=== PATIENT | female | born 1955 | race Caucasian/White ===

== ENCOUNTER 2022-01-24 05:09 | Observation (INO) ==
--- NOTE | 2021-12-17 13:07 | PAT Medication Instructions ---
Medication Instructions Date of Service December 17, 2021 Home Medications alendronate 70 mg tablet 70 mg PO Q7D aspirin 81 mg tablet 81 mg PO Q3D calcium carbonate 600 mg-vitamin D3 5 mcg (200 unit) tablet 1 tab PO QAM docusate sodium 100 mg capsule (Stool Softener) 100 mg PO QAM PRN glucosamine-chondroitin 1 tab PO QAM ibuprofen 200 mg capsule 200 mg PO Q6H PRN levothyroxine 175 mcg tablet 175 mcg PO QAM polyvinyl alcohol 1.4 % eye drops 1 drp ophthalmic (eye) BID PRN lubrication for plastic eye prosthesis turmeric root extract 150 mg-stoney root extract 25 mg chewable tablet 1 tab PO QAM Continue as directed alendronate 70 mg tablet 70 mg PO Q7D (do NOT take day of surgery) aspirin 81 mg tablet 81 mg PO Q3D (unless directed otherwise by surgeon) ASK your surgeon for instructions ibuprofen 200 mg capsule 200 mg PO Q6H PRN STOP taking 2 weeks before surgery glucosamine-chondroitin 1 tab PO QAM turmeric root extract 150 mg-stoney root extract 25 mg chewable tablet 1 tab PO QAM DO NOT take the morning of surgery calcium carbonate 600 mg-vitamin D3 5 mcg (200 unit) tablet 1 tab PO QAM docusate sodium 100 mg capsule (Stool Softener) 100 mg PO QAM PRN Take morning of surgery With a small sip of water, OTHERWISE NOTHING TO EAT OR DRINK AFTER MIDNIGHT: levothyroxine 175 mcg tablet 175 mcg PO QAM polyvinyl alcohol 1.4 % eye drops 1 drp ophthalmic (eye) BID PRN lubrication for plastic eye prosthesis(if needed) Take evening before surgery polyvinyl alcohol 1.4 % eye drops 1 drp ophthalmic (eye) BID PRN lubrication for plastic eye prosthesis(if needed) Other Notes If you have any questions please call us at [phone] or [phone] or [phone] or [phone]
--- NOTE | 2021-12-26 10:21 | Anesthesiology Consultation ---
Date of Service December 26, 2021 Assessment & Plan (1) Encounter for pre-operative examination: - optimization note completed requesting PCP consideration for pre-op echocardiogram. - COVID screening: Per assessment on 12/26/2021: Travel screen negative, no known COVID-19 positive contacts or current COVID-19 related symptoms in past 2 weeks. Pt vaccinated. Surgeon arranging preop COVID testing, scheduled 01/22/2022. Awaiting results. Chart Review Chart Review: Pending: Refer to Additional Notes / Consult section and Patient seen in Pre Admission Testing Teaching & Discussion Pre-Anesthesia Teaching/Discussion Notes: Instructed NPO after midnight before surgery, except medications with 15 cc of water. Medication instructions provided according to the PAT guidelines. History Surgery Operation Date: 01/24/22 11:20 Proposed Procedures p Right Total Knee Arthroplasty - See Machado, Height/Weight Height: 5 ft 7 in Weight: 124.8 kg Allergies Allergy/AdvReac Type Severity Reaction Status Date / Time adhesive tape Allergy Rash Verified 12/26/21 10:44 codeine Allergy GI upset Verified 12/26/21 10:44 Sulfa (Sulfonamide Allergy Rash Verified 12/26/21 10:44 Antibiotics) Medications Home Medications Medication Instructions Recorded Confirmed Last Taken alendronate 70 mg tablet 70 mg PO Q7D 12/16/21 12/16/21 Unknown aspirin 81 mg tablet 81 mg PO Q3D 12/16/21 12/16/21 Unknown calcium carbonate 600 mg-vitamin 1 tab PO QAM 12/16/21 12/16/21 Unknown D3 5 mcg (200 unit) tablet docusate sodium 100 mg capsule 100 mg PO QAM PRN Constipation 12/16/21 12/16/21 Unknown (Stool Softener) glucosamine-chondroitin 1 tab PO QAM 12/16/21 12/16/21 Unknown ibuprofen 200 mg capsule 200 mg PO Q6H PRN Pain 12/16/21 12/16/21 Unknown levothyroxine 175 mcg tablet 175 mcg PO QAM 12/16/21 12/16/21 Unknown polyvinyl alcohol 1.4 % eye drops 1 drp ophthalmic (eye) BID PRN 12/16/21 12/16/21 Unknown lubrication for plastic eye prosthesis turmeric root extract 150 1 tab PO QAM 12/16/21 12/16/21 Unknown mg-stoney root extract 25 mg chewable tablet erythromycin 12/26/21 Unknown solifenacin 12/26/21 Unknown Past Medical History Medical History History of eye prosthesis Right Hx of cataract Right Hx of thyroid cancer Migraine Hx Patient denies h/o stroke, seizures, heart attack, heart failure, DM, HTN, blood clots or blood transfusions. Exercise / Class Metabolic Activity II 4-5 Yardwork/Stairs/Walk up hill (denies CP or SOB with 15 steps, ambulates with cane) Past Surgical History Surgical History History of cardiac cath 08/2016 ([facility]) > no stents "Normal coronary arteriography" Hx of cataract extraction Right Hx of colonoscopy Hx of enucleation of right eyeball Hx of eye surgery Right eye, multiple surgeries Hx of thyroidectomy Hx of tubal ligation Past Anesthesia History No Hx of Anesthesia Complications and No Family Hx of Anesthesia Complications History of PONV No Hx of PONV and No Hx of Motion Sickness Social History Smoking Status: Never smoker Do You Dip or Chew Tobacco: No Hx Alcohol Use: Yes Alcohol type: wine alcohol intake frequency: holidays/special occasions only Hx Substance Use: No substance use type: does not use Review of Systems Infrequent reflux if eats late at night. Patient denies chest pain, shortness of breath, dyspnea on exertion, snoring, witnessed apneas, fever, chills, cough, wheezing, or palpitations. Physical Exam Vital Signs Vitals BP 140/75 P 85 TEMP 99 SP02 95% on RA RESP 17 Physical Full cervical extension range of motion without pain TMD 3.5 finger breadths Mallampati Score 3 Dentition: intact, denies chipped or loose teeth, caps/crowns, implants or bridges Lungs: normal respiratory effort. Clear throughout to auscultation, no adventitious breath sounds Cardiac: regular rate and rhythm, 2/6 systolic murmur noted Carotid arteries: negative bruit bilat Lab Results Anesthesia Preop Results Results Anesthesia Widget: WBC 5.76 K/ul (4.8-10.8) 12/26/21 Hgb 14.1 g/dl (12.0-16.0) 12/26/21 Hct 42.2 % (34.1-44.9) 12/26/21 Plt 243 K/uL (130-400) 12/26/21 Na 141 mmol/L (136-145) 12/26/21 K 4.2 mmol/L (3.5-5.1) 12/26/21 Cl 109 mmol/L (98-107) H 12/26/21 CO2 27 mmol/L (21-32) 12/26/21 BUN 15 mg/dl (6-23) 12/26/21 Creat 0.70 mg/dl (0.6-1.2) 12/26/21 Glucose Level 100 mg/dl (70-99(Fasting)) H 12/26/21 PT 10.9 Seconds (9.0-12.0) 12/26/21 PTT 26.1 Seconds (21.0-31.0) 12/26/21 INR 1.0 (0.9-1.1) 12/26/21 Blood Type O Positive 12/26/21 Antibody Screen NEGATIVE 12/26/21 Testing Electrocardiogram Date: 12/26/21 NSR, rate [address] abnormality anterolateral leads Chest X-Ray Date: 12/26/21 No acute cardiopulmonary findings. Cardiac Catheterization Date: 09/26/16 Left main: normal LAD: normal Cx: normal RCA: normal Conclusion: Normal coronary arteriography
--- NOTE | 2022-01-23 09:24 | History & Physical Report ---
Date of Service January 23, 2022 Assessment & Plan (1) Osteoarthritis of right knee: We will proceed with a right total knee arthroplasty. Postoperatively she will be started on aspirin for DVT prophylaxis and placed in our outpatient joint protocol. She plans to use Fullscreen upon discharge. History of Present Illness Chief Complaint: Advanced osteoarthritis right knee. Primary Care Provider: NO PCP Mikayla is a 66-year-old female who has been having a long history of increasing right knee pain. She had arthroscopic surgery done in 2000. She had a medial and lateral meniscectomy done. Over the past couple of years, her knee pain has gotten worse. Mostly lateral compartment and patellofemoral pain. She has a difficult time going up and down stairs, getting up from a seated position. The biggest complaint is she gets a lot of posterior knee pain and some walking in tension. X-rays and clinical examination have been diagnostic for advanced osteoarthritis of the right knee. After failing conservative treatment, she elected to proceed with a right total knee arthroplasty. Allergies Allergy/AdvReac Type Severity Reaction Status Date / Time adhesive tape Allergy Rash Verified 12/26/21 10:44 codeine Allergy GI upset Verified 12/26/21 10:44 Sulfa (Sulfonamide Allergy Rash Verified 12/26/21 10:44 Antibiotics) Home Medications Medication Instructions Recorded Confirmed Type alendronate 70 mg tablet 70 mg PO Q7D 12/16/21 12/16/21 History aspirin 81 mg tablet 81 mg PO Q3D 12/16/21 12/16/21 History calcium carbonate 600 mg-vitamin 1 tab PO QAM 12/16/21 12/16/21 History D3 5 mcg (200 unit) tablet docusate sodium 100 mg capsule 100 mg PO QAM PRN Constipation 12/16/21 12/16/21 History (Stool Softener) glucosamine-chondroitin 1 tab PO QAM 12/16/21 12/16/21 History ibuprofen 200 mg capsule 200 mg PO Q6H PRN Pain 12/16/21 12/16/21 History levothyroxine 175 mcg tablet 175 mcg PO QAM 12/16/21 12/16/21 History polyvinyl alcohol 1.4 % eye drops 1 drp ophthalmic (eye) BID PRN 12/16/21 12/16/21 History lubrication for plastic eye prosthesis turmeric root extract 150 1 tab PO QAM 12/16/21 12/16/21 History mg-stoney root extract 25 mg chewable tablet erythromycin 12/26/21 History solifenacin 12/26/21 History Past Med/Surg History Medical History History of eye prosthesis Right Hx of cataract Right Hx of thyroid cancer Migraine Hx Tricuspid regurgitation mild Surgical History History of cardiac cath 08/2016 ([facility]) > no stents "Normal coronary arteriography" Hx of cataract extraction Right Hx of colonoscopy Hx of enucleation of right eyeball Hx of eye surgery Right eye, multiple surgeries Hx of thyroidectomy Hx of tubal ligation Social History Smoking Status: Never smoker Second Hand Exposure: No; Hx Alcohol Use: Yes Alcohol type: wine Hx Substance Use: No Preferred Language: [place] Communication Ability: Effective Well Head Pumper Required: No Beliefs That Will Affect Care: None Current Living Situation: Spouse Feels Safe at Home: Yes Assistive Devices: Cane, Glasses, Prosthesis and Walker Review of Systems All systems reviewed & are unremarkable except as noted in HPI & below. Physical Exam On physical examination of the right knee, she has range of motion of 0 to 110 degrees. She has no instability. She has tenderness palpation of the distal femoral condyles and over the joint lines.. Constitutional WD/WN, vitals as above Eyes PERRL, conjunctivae normal, anicteric sclerae ENMT external ear and nose normal, oropharynx normal Neck trachea midline, no thyromegaly Respiratory normal respiratory effort, lungs clear to auscultation Cardiovascular RRR, no murmur, no edema Gastrointestinal (Abdomen) normal bowel sounds, soft, nontender, no hepatosplenomegaly Skin no rashes, warm and dry Psychiatric A+Ox3, euthymic affect Results & Data Results & Data Laboratory Results . Diagnostic Findings X-rays of the right knee show advanced osteoarthritis with joint space narrowing, osteophyte formation, and [id number] articulation.. PG Care Time/CCT Total # of Minutes Spent Total Time Spent with Patient: Total time spent is greater than 50% in coordination of care (as documented) at patient's floor/unit and/or counseling patient: Coding Level of Care Code None Diagnoses Osteoarthritis of right knee M17.11
[2022-01-24] MEDS ORDERED: TRANEXAMIC ACID 1,000 MG **IV Pre-op IV SCH (06:00)
[2022-01-24] MEDS ORDERED: dexAMETHasone 4 MG TAB PO SCH (06:00)
[2022-01-24] MEDS ORDERED: FAMOTIDINE 20 MG TAB PO SCH (06:00)
[2022-01-24] MEDS ORDERED: GABAPENTIN 300 MG CAP PO SCH (06:00)
[2022-01-24] MEDS ORDERED: ACETAMINOPHEN 500 MG TAB PO SCH (06:00)
[2022-01-24] MEDS ORDERED: LR 500ML BOLUS, THEN 15ML/HR IV SCH (06:00)
[2022-01-24] MEDS ORDERED: Ketorolac (*for OR use only*) 30 MG, dexAMETHasone 4 MG, KETAMINE HCL (**OR use only) 1... INFIL SCH (06:00)
[2022-01-24] MEDS ORDERED: LR 60ML/HR IV SCH (06:00)
[2022-01-24] MEDS ORDERED: TRANEXAMIC ACID 1,000 MG **IV Intra-op IV SCH (06:00)
[2022-01-24] MEDS ORDERED: MEPIVACAINE HCL 1.5% 30 ML VIAL ONE (06:25)
[2022-01-24] MEDS ORDERED: ROPIVACAINE 0.5% 5 MG/ML 30 ML VIAL ONE (06:25)
[2022-01-24] MEDS ORDERED: ONDANSETRON INJ 2 MG/ML 2 ML VIAL IV PRN (06:39)
[2022-01-24] MEDS ORDERED: ePHEDrine sulfate 50 MG/ML AMP IV PRN (06:39)
[2022-01-24] MEDS ORDERED: fentaNYL citrate 100 MCG/2 ML VIAL IV PRN (06:39)
[2022-01-24] MEDS ORDERED: MIDAZOLAM HCL 1 MG/ML 2ML VIAL ONE ×2 (06:39→09:53)
[2022-01-24] MEDS ORDERED: ORTHO JOINT ANESTHETIC ONE (06:39)
[2022-01-24] MEDS ORDERED: ATROPINE SULFATE 0.1 MG/ML 10ML SYR IV PRN (06:39)
[2022-01-24] MEDS ORDERED: KETOROLAC 30 MG/ML VIAL IV PRN (06:39)
[2022-01-24] MEDS ORDERED: KETAMINE 50 MG/5 ML SYRINGE ONE (06:48)
--- NOTE | 2022-01-24 06:53 | History & Physical Bridge Note ---
Date of Service January 24, 2022 History & Physical Bridge Note I have examined the patient, reviewed the History & Physical and in the interval since the performance of the History & Physical I have noted the following changes of clinical significance: no changes noted
[2022-01-24] MEDS ORDERED: PROPOFOL IV EMULSION 10 MG/ML 20 ML VIAL IV ONE ×3 (07:20→07:58)
[2022-01-24] MEDS ORDERED: ONDANSETRON INJ 2 MG/ML 2 ML VIAL ONE (07:20)
--- NOTE | 2022-01-24 08:18 | Operative Report ---
PG Post Operative Report Pre & Post Diagnosis Operation Date: 01/24/22 07:00 Pre-Op Diagnosis: Right Knee Osteoarthritis Post-Op Diagnosis: Right Knee Osteoarthritis I identified the patient and participated in the time-out.: Yes Procedure Operation Date: 01/24/22 07:00 Actual Procedures p Right Total Knee Arthroplasty(Right) - See Machado DO Surgeon See Machado DO Ui Ux Engineer See Byrd PA-C Estimated Blood Loss 20 Findings Consistent with Post-Op Diagnosis Specimens Right femoral and tibial bone Description of Procedure Implants used: I used a [employer] Persona total knee arthroplasty system with a size 11 narrow PS femur, F tibia with a 30 mm stem extension, 31 oval patella, and a size 10 CPS polyethylene bearing. All components were cemented in place with Biomet cement. Mikayla arrived [facility] for the above procedure. He was seen in the preoperative holding area and the operative extremity was identified and signed. He was given a preoperative antibiotic, TXA, a spinal anesthetic and an adductor nerve block. He was taken back to the operating room and laid on the table in supine position. He was given basic sedation. The operative knee was then prepped and draped in sterile fashion. A timeout was done, and the patient and the operative extremity was properly identified. A midline incision was made directly over the patella. Dissection was taken down to the extensor mechanism. A subvastus arthrotomy was used. The medial retinaculum was released and the fat pad was mostly excised. The knee was flexed and the ACL, PCL, and meniscus were removed. A drill was sent down the center of the femoral canal followed by an intramedullary antonio. Off that antonio a distal femoral cutting block was placed. 9 mm was resected off the distal femur at 5 of valgus. A posterior referencing AP sizing guide was then placed on the distal femur. The femur measured to be a size 11. 2 drill holes were placed in 3 of external rotation. A 4-in-1 cutting block was then impacted into place. Anterior, posterior, and chamfer cuts were then made. The proximal tibia was then exposed. An external tibial alignment guide was placed. A tibial cut guide was then anchored in place and the proximal tibia was then resected. The posterior aspect of the knee was then opened up and any additional meniscus fragments and osteophytes were removed. The tibia measured to be a size F. The tibial plate was then placed in the appropriate rotation and the tibia was drilled and punched. Trial components were then placed. I used a size 10 CPS polyethylene insert. The knee was brought through a full range of motion and felt to be stable. The peg holes for the femoral component were then drilled. The patella was then everted and 9 mm was resected off the posterior aspect of the patella. The patella measured to be a size 31 oval. 3 peg holes were then drilled. A trial patella was placed. The knee was once again brought through a full range of motion and felt to be stable. Trial components were then removed. The surrounding soft tissues were injected with 100 cc of an orthopedic pain control cocktail. All components were then cemented into place with Biomet cement. The final polyethylene insert was then snapped into place. Once cement was dry the tourniquet was deflated. Hemostasis was obtained. A dilute betadyne lavage was then done for 3 minutes. The joint was then irrigated with normal saline solution. The subvastus arthrotomy was then closed with #1 Vicryl suture. The skin was closed with 2-0 Vicryl, 3-0V lock suture, and dylan. A soft compressive dressing was placed. He was then transferred to a hospital bed and taken to the postanesthesia care unit in stable condition. He tolerated the procedure well. See Byrd PA-C, was present for the entire procedure. He was critical for patient positioning, prepping, draping, retraction exposure, wound closure and application of sterile dressing. I attest to the content of the Intraoperative Record and any orders documented therein. Any exceptions are noted below.
[2022-01-24] MEDS ORDERED: LIDOCAINE 2% MPF LOCAL 5 ML VIAL INFIL ONE (08:44)
--- NOTE | 2022-01-24 09:28 | XRay Report ---
XR knee RT 1 or 2V routine HISTORY: 66 years-old Female Surgical Post Op right knee total joint arthroplasty COMPARISON: Knee radiographs 11/20/2021 TECHNIQUE: 2 views the right knee FINDINGS: Total joint arthroplasty with patellar resurfacing. Anterior midline skin dylan are present along w ith expected postoperative soft tissue swelling with deep tissue air. No acute fracture, malalignment or unexpected opaque foreign body. IMPRESSION: Total joint arthroplasty with expected postoperative changes. ACT 112: Negative or not required by law. The above report was generated using voice recognition software. It may contain grammatical, syntax o r spelling errors. Electronically signed by: Geoff North M.D. 01/24/2022 9:26 AM
--- NOTE | 2022-01-24 09:35 | Anesthesiology Progress Note ---
Date of Service January 24, 2022 Anesthesia Post Procedure Vital Signs Vital Signs: Temp Pulse Pulse Resp BP Pulse Ox O2 Del Method 01/24/22 09:20 36.2 C L 77 21 150/88 H 93 Room Air 01/24/22 09:10 84 16 152/84 H 95 Room Air 01/24/22 09:00 82 21 156/77 H 95 Room Air 01/24/22 08:50 86 19 142/77 H 96 Room Air 01/24/22 08:41 36.5 C 90 18 137/75 94 Room Air 01/24/22 05:48 37 C 84 20 199/103 H 95 Room Air Transfer of Care Handoff Completed per policy Notes Mental Status: alert / awake / arousable Patient Amnestic to Procedure: Yes Nausea / Vomiting: adequately controlled Pain: adequately controlled Airway Patency, RR, SpO2: stable & adequate BP & HR: stable & adequate Hydration State: stable & adequate Neuraxial Anesthesia: was administered and sensory block is resolving Anesthetic Complications: no major complications apparent
[2022-01-24] MEDS: oxyCODONE/ACETAMINOPHEN 5mg/325mg TAB PO PRN ×2 (10:14→16:41)
[2022-01-24] MEDS ORDERED: NALOXONE HCL 0.4 MG/1 ML VIAL/CARP IV PRN (17:51)
[2022-01-24] MEDS ORDERED: HYDROmorphone INJ 0.5 MG/0.5 ML SYR IV PRN (17:51)
[2022-01-24] MEDS ORDERED: bisacodyL 10 MG SUPP PR PRN (17:51)
[2022-01-24] MEDS ORDERED: METOCLOPRAMIDE HCL INJ 5 MG/ML 2 ML VIAL IV PRN (17:51)
[2022-01-24] MEDS ORDERED: oxyCODONE HCL IR 5 MG TAB (IMMEDIATE RELEASE) PO PRN (17:51)
[2022-01-24] MEDS ORDERED: MAGNESIUM HYDROXIDE SUSP 30 ML UDC PO PRN (17:51)
[2022-01-24] MEDS: SODIUM CHLORIDE 0.9% 1000ML 1,000 ML IV SCH (18:24)
[2022-01-24] MEDS: KETOROLAC 30 MG/ML VIAL IV SCH ×2 (18:25→23:06)
[2022-01-24] MEDS: ASPIRIN 81 MG ECTAB PO SCH (19:58)
[2022-01-24] MEDS: DOCUSATE SODIUM 100 MG CAP PO SCH (19:59)
[2022-01-24] MEDS ORDERED: SENNA 8.6 MG TAB PO SCH (21:00)
[2022-01-24] MEDS: ceFAZolin 2000MG 2,000 MG/15 ML SYR IV SCH (22:14)
[2022-01-25] MEDS: SODIUM CHLORIDE 0.9% 1000ML 1,000 ML IV SCH (04:26)
[2022-01-25] MEDS: KETOROLAC 30 MG/ML VIAL IV SCH ×2 (05:29→11:50)
[2022-01-25] MEDS: ceFAZolin 2000MG 2,000 MG/15 ML SYR IV SCH (05:29)
[2022-01-25] MEDS: ASPIRIN 81 MG ECTAB PO SCH (07:53)
[2022-01-25] MEDS: DOCUSATE SODIUM 100 MG CAP PO SCH (07:54)
[2022-01-25] MEDS ORDERED: dexAMETHasone 4 MG TAB PO SCH (08:00)
--- NOTE | 2022-01-25 08:16 | Orthopedic Progress Note ---
Date of Service January 25, 2022 Assessment & Plan (1) Status post right knee replacement: Overall she is doing very well. She is having too much pain in the knee. She has more strength today. She will be seen by physical therapy today for ambulation and range of motion exercises. She can be discharged home later today. She is on aspirin for DVT prophylaxis. She will follow-up with orthopedics in 2 weeks. Kaushik Degroot was seen and examined at bedside this morning. Overall she is doing fairly well. She had trouble doing stairs yesterday with therapy so she was kept overnight. She feels she has more strength in her leg today. She has no new complaints.. Review of Systems All systems reviewed & are unremarkable except as noted in HPI & below. Physical Exam On physical examination of the right knee, the dressing is clean and dry. Her leg is out full extension. She has active dorsiflexion plantarflexion of her right ankle.. Results & Data Results & Data Laboratory Results . Diagnostic Findings Postoperative x-rays of the right knee show the prosthesis to be in anatomic alignment without any evidence of fracture, desiccation, or loosening. PG Care Time/CCT Total # of Minutes Spent Total Time Spent with Patient: Total time spent is greater than 50% in coordination of care (as documented) at patient's floor/unit and/or counseling patient: Coding Level of Care Code 19726 Post Operative Follow-Up Diagnoses Status post right knee replacement Z96.651
--- NOTE | 2022-01-25 08:17 | Discharge Summary ---
Date of Service January 25, 2022 Admission HPI (Per Admitting) Mikayla is a 66-year-old female who has been having a long history of increasing right knee pain. She had arthroscopic surgery done in 2000. She had a medial and lateral meniscectomy done. Over the past couple of years, her knee pain has gotten worse. Mostly lateral compartment and patellofemoral pain. She has a difficult time going up and down stairs, getting up from a seated position. The biggest complaint is she gets a lot of posterior knee pain and some walking in tension. X-rays and clinical examination have been diagnostic for advanced osteoarthritis of the right knee. After failing conservative treatment, she elected to proceed with a right total knee arthroplasty. Admission Exam (Per Admitting) On physical examination of the right knee, she has range of motion of 0 to 110 degrees. She has no instability. She has tenderness palpation of the distal femoral condyles and over the joint lines.. Principal Diagnosis Same as "Discharge Diagnosis" noted below under Discharge Instructions. Discharge Exam On physical examination of the right knee, the dressing is clean and dry. Her leg is out full extension. She has active dorsiflexion plantarflexion of her right ankle.. Discharge Data Procedures Performed Operation Date: 01/24/22 07:00 Actual Procedures p Right Total Knee Arthroplasty(Right) - See Machado DO Ordered Studies 01/24/22 05:00 US - OR guided needle placemen Routine Hospital Course (1) Status post right knee replacement: On January 24, 2022 Mikayla arrived at [facility] and underwent a right knee replacement without complication. She had a spinal anesthetic. Postoperatively she was a started on aspirin for DVT prophylaxis. She was supposed to be in our outpatient joint protocol. She stayed in the recovery room for several hours. She was seen several times by physical therapy. She was able to ambulate but her knee was buckling while trying to do stairs. She did not feel safe getting back into her house. She was then kept overnight in the hospital. On postop day #1 she was doing better. She felt she had more strength in her leg. She participated well with physical therapy. She was then discharged home. She will follow with orthopedics in 2 weeks. PG Care Time/CCT Total # of Minutes Spent Total Time Spent with Patient: Total time spent is greater than 50% in coordination of care (as documented) at patient's floor/unit and/or counseling patient: Discharge Plan Discharge Items Patient Disposition: Home - Home Health Services Reason For Visit: Right Knee Osteoarthritis Discharge Diagnosis: Right knee replacement Activity: Per Instructions section Non-emergency contact: Surgeon Call non-emergency contact if: your wound has increased redness and your wound has increased drainage Follow-up/Referrals: [facility] [Outside] (as per surgeon's order) Thalia Bolivar DO [Primary Care Provider] - Diet: Regular Addtl Attending Provider Instructions: Activity and Therapy Recommendations: * If you are using [facility] then therapy will be provided at your home until they feel you have accomplished all of your goals. * If you are using [facility] then Physical Therapy will be provided until they feel you are ready to start Outpatient Physical Therapy. * If you are not using home therapy then Outpatient Physical Therapy should start about 3-5 days from your day of surgery. Therapy will last about 6-10 weeks * It is important not to put a pillow under your knee when you are relaxing or sleeping. It is just as important to make sure you are getting your knee perfectly straight as it is to regain your knee bend. * You were shown a series of exercises in the hospital. Do these exercises three times each day including the exercises you were shown in physical therapy. * Get up and walk several times each day. For the first four weeks, try not to stand or walk for more than one hour at a time. If you do stand or walk for more than one hour, you will not hurt anything, but your leg will likely swell. * As you feel comfortable, you may change from the walker or crutches to a cane and then to independent walking. Medications: * Narcotic You will likely be sent home from the hospital with a prescription for the narcotic pain medication that worked best throughout your stay. * Aspirin Most patients will be required to take Aspirin 81mg twice a day for 6 weeks after surgery. This is obtained [id number] and a prescription is not necessary. * Other medications may be prescribed for specific circumstances. If you have any questions, please call the office at . * Resume previous home medications unless otherwise instructed TEDs/Elastic Stockings: The white elastic stockings help limit swelling and prevent blood clots from forming in your legs.~ The more you wear them, the more they work. Wear them for six weeks. Dressing Care: The dressing can be changed after physical therapy on postop day #1. Daily dry dressing changes for a few days, especially if the incision is still draining some. If the incision is not draining then you may leave the dylan open to air. If there is a little bit of drainage or if the dylan are getting stuck on your clothing then cover the incision with a dry dressing. The dylan will be removed at your 2 week follow-up appointment. Showering: You may shower 5 days from the day of surgery as long as the incision is no longer draining. You may shower with the dylan exposed. Let soapy water run over the dylan and pat them dry. Do not scrub or soak the incision. Things To Watch For: * Drainage from the incision site that occurs more than one week after your surgery. * Increased redness at the incision site. * Fever above 102 degrees Fahrenheit. * Unusual chest pain or shortness of breath. * Call [facility] at with any of the above problems Follow-Up Visit: Follow-up with Dr. Machado's PA (See Byrd) 2-3 weeks after your day of surgery. He will remove your dylan and answer any questions. If you have any additional questions or concerns, Dr Machado is usually in the office at the same time and will be available An appointment was probably scheduled when you signed-up for surgery in the office. If you have any questions call Office Instructions: More detailed instructions as well as Frequently Asked Questions were provided in a folder by our office when you signed-up for surgery. Please review these instructions when you get home. If you have any further questions or concerns, please feel free to call the office at [phone] Pending Studies at Discharge: No Stand-Alone Forms: My [facility] [email or web address] Medications and DC Order Prescriptions: New oxycodone-acetaminophen 5-325 mg tablet 1 tab PO Q6H PRN (Reason: pain) Qty: 30 0RF celecoxib [Celebrex] 200 mg capsule 200 mg PO BID Qty: 28 0RF Rx Instructions: Take 1 pill twice a day for 2 weeks after surgery aspirin [Adult Aspirin Regimen] 81 mg tablet,delayed release (DR/EC) 81 mg PO BID Qty: 84 0RF Continued polyvinyl alcohol [Eye Drops (PVA)] 1.4 % Drops 1 drp OPHTHALMIC (EYE) BID PRN (Reason: lubrication for plastic eye prosthesis) calcium carbonate-vitamin D3 [Calcium + D] 600 mg-5 mcg (200 unit) Tablet 1 tab PO QAM docusate sodium [Stool Softener] 100 mg Capsule 100 mg PO QAM PRN (Reason: Constipation) levothyroxine 175 mcg Tablet 175 mcg PO QAM alendronate 70 mg Tablet 70 mg PO Q7D Rx Instructions: mondays turmeric root-stoney root ext 150-25 mg Tablet,Chewable 1 tab PO QAM glucosamine-chondroitin 1 tab PO QAM solifenacin 1 tab PO DAILY erythromycin 2 % Ointment 1 ea TOPICAL DIRECTED PRN (Reason: Eye Irritation) Discontinued ibuprofen 200 mg Capsule 200 mg PO Q6H PRN (Reason: Pain) aspirin 81 mg Tablet 81 mg PO Q3D Discharge Orders: Discharge Order (Routine); Ordered 01/24/22 Ordered By: See Machado Admission Data Admit Date/Time: 01/24/22 16:02 Attending Provider: See Machado Admit Provider: See Machado Primary Care Provider: Thalia Bolivar
[2022-01-25] MEDS ORDERED: MULTIVITAMIN TAB PO SCH (09:00)
[2022-01-25 15:35] VITALS: BP 145/89; PULSE 91; TEMP 99.5; O2SAT 93
== END 2022-01-25 15:46 | disposition home health service (06) ==
LOC: ASU 05:09 → 3E 05:09
DX: M17.11 Unilateral primary osteoarthritis, right knee; Z88.5 Allergy status to narcotic agent; Z79.899 Other long term (current) drug therapy; Z79.82 Long term (current) use of aspirin; Z88.2 Allergy status to sulfonamides